=== PATIENT | male | born 1995 | race Caucasian/White ===

== ENCOUNTER → 2023-04-14 | Outpatient (CLI) | payer BC ==
--- NOTE | 2023-04-14 17:02 | XR ---
EXAMINATION TYPE: XR KUB DATE OF EXAM: 04/14/2023 COMPARISON: None at this location INDICATION: Left renal stone TECHNIQUE: Single view abdomen supine view FINDINGS: There is a normal bowel gas pattern. Psoas margins are normal. No organomegaly is present. There is a 0.6 cm calcification overlying the inferior pole left kidney. No additional renal stones i dentified. Phleboliths within the pelvis. IMPRESSION: 1. 0.6 cm inferior pole left renal stone
== END | disposition home or self-care (01) ==
LOC: RADXRMAIN 15:13
PROVIDERS: ATTEND Urology
DX: N20.0 Calculus of kidney (principal)
CPT/HCPCS: 74018

== ENCOUNTER → 2023-04-26 | Outpatient (CLI) | payer BC ==
[2023-04-27 02:17] LABS: Appearance,Urine Clear (Clear); Bilirubin,Urine Negative (Negative); Blood,Urine Negative (Negative); Color,Urine Yellow (Yellow); Ketones,Urine Negative (Negative); Nitrite,Urine Negative (Negative); PH, Urine 7.5; Specific Gravity,Urine 1.007 (1.001-1.030); Urobilinogen,Urine 0.2 E.U./DL
[2023-04-27 02:31] LABS: Basophils # (A) 0.04 X 10*3/uL (0.00-0.10); Basophils % (A) 0.4 %; Eosinophils # (A) 0.15 X 10*3/uL (0.04-0.35); Eosinophils % (A) 1.6 %; HCT 47.2 % (39.6-50.0); HGB 15.1 g/dL (13.0-17.0); Lymphocytes # (A) 2.93 X 10*3/uL (0.90-5.00); Lymphocytes % (A) 31.8 %; MCV 84.3 FL (80.0-97.0); Mean Platelet Volume 10.4 FL (9.5-12.2); Monocytes # (A) 0.49 X 10*3/uL (0.20-1.00); Monocytes % (A) 5.3 %; NRBC Per 100 WBC 0 X 10*3/uL (0.00-0.01); Neutrophils # (A) 5.58 X 10*3/uL (1.80-7.70); Neutrophils % (A) 60.7 %; Platelet Count 264 X 10*3/uL (140-440); RDW 12.4 % (11.5-14.5); WBC 9.21 X 10*3/uL (4.50-10.00)
[2023-04-27 03:28] LABS: Blood Urea Nitrogen 14.8 mg/dL (9.0-27.0); Carbon Dioxide 26.3 mmol/L (21.6-31.8); Chloride 102 mmol/L (96-109); Potassium 4.1 mmol/L (3.5-5.5); Sodium 139 mmol/L (135-145)
== END | disposition home or self-care (01) ==
LOC: LABPAT 16:30
PROVIDERS: ATTEND Urology
DX: Z01.812 Encounter for preprocedural laboratory examination (principal); N20.0 Calculus of kidney
CPT/HCPCS: 80051; 81003; 82565; 84520; 85025; 87086

== ENCOUNTER → 2023-05-03 | Day surgery (SDC) | payer BC ==
--- NOTE | 2023-05-02 15:05 | P.GSHP ---
History of Present Illness H&P Date: 05/02/23 28 yo male seen in the office / after being seen in the er with a 6 mm proximal ureteral stone on the left. a kub that day showed the stone had dropped back to the left lower pole. I discussed treatment options and he comes for eswl left. - Constitutional Constitutional: Denies chills, Denies fever - EENT Eyes: denies blurred vision, denies pain Ears, nose, mouth and throat: Denies headache, Denies sore throat - Cardiovascular Cardiovascular: Denies chest pain, Denies shortness of breath - Respiratory Respiratory: Denies cough, Denies 7 - Gastrointestinal Gastrointestinal: Denies abdominal pain, Denies diarrhea, Denies nausea, Denies vomiting - Genitourinary (Female) Genitourinary: Denies dysuria, Denies hematuria - Genitourinary (Male) Genitourinary: Denies dysuria, Denies hematuria - Musculoskeletal Musculoskeletal: Denies myalgias - Integumentary Integumentary: Denies pruritus, Denies rash - Neurological Neurological: Denies numbness, Denies weakness - Psychiatric Psychiatric: Denies anxiety, Denies depression - Endocrine Endocrine: Denies fatigue, Denies weight change Surgical - Exam - General well developed, well nourished, no distress - Eyes normal ocular movement, no icteric - ENT no hearing loss, no congestion - Neck no masses, trachea midline - Respiratory normal respiratory effort, clear to auscultation - Abdomen Abdomen: soft, non tender, no guarding, no rigid, no rebound - Integumentary no rash, no abnormal pigmentation - Neurologic no disoriented, no combative - Psychiatric oriented to time, oriented to person, oriented to place, speech is normal, memory intact Results - Imaging Abdominal x-ray: report reviewed, image reviewed CT scan - abdomen: report reviewed CT scan - pelvis: report reviewed Assessment and Plan Assessment: impression: Left renal stone Plan: ESWL left
[~2023-05-03] MED LIST: FUROSEMIDE 10 MG/ML 2 ML VIAL ONE; GLYCOPYRROLATE 0.2 MG/ML 2 ML VIAL ONE; LIDOCAINE 1% (10MG/ML) FOR IV START INTRADERMA PRN; MIDAZOLAM 2 MG/2 ML VIAL ONE; ONDANSETRON 4 MG/2 ML VIAL IVP PRN; ONDANSETRON 4 MG/2 ML VIAL ONE; PROPOFOL 10 MG/ML 20 ML VIAL IV ONE; fentaNYL (PF) 50 MCG/ML 2 ML AMP ONE
[2023-05-03] MEDS: IV FLUID CONTINUATION 1,000 ML IV ONE ×2 (09:43→09:45)
[2023-05-03 10:00] VITALS: TEMP 97.5
--- NOTE | 2023-05-03 10:13 | XR ---
EXAMINATION TYPE: XR KUB DATE OF EXAM: 05/03/2023 9:06 AM CLINICAL INDICATION:Male, 28 years old with history of N20.0 left renal calculi; [facility] COMPARISON: None. TECHNIQUE: One radiographic view of the abdomen was obtained. FINDINGS: The bowel gas pattern is nonspecific without dilated loops of small or large bowel. There i s no evidence for organomegaly or pneumoperitoneum. The osseous structures are intact. 6 mm calculu s projects over the left kidney. Fecal material and gas are demonstrated throughout the colon and rec angelica. IMPRESSION: Nonspecific bowel gas pattern without radiographic evidence for acute process. Left Nephrolithiasis
--- NOTE | 2023-05-03 10:21 | P.OP ---
Date of Procedure: 05/03/23 Preoperative Diagnosis: Left ureteral calculus Postoperative Diagnosis: Same Procedure(s) Performed: Extracorporeal shockwave lithotripsy, 2500 shocks at energy level IV Anesthesia: MAC Surgeon: Josue Phoenix Pathology: none sent Condition: stable Disposition: PACU Indications for Procedure: The patient is 28. He has a 5 mm proximal left ureteral stone causing colic. He comes for left shockwave lithotripsy Description of Procedure: Patient is brought to the operating suite. On the lithotripsy table is given IV sedation. The stone was seen in the proximal left ureter with 2 views with fluoroscopy. 2500 shocks at energy level IV administered with the Dornier compact delta 2 lithotripter. Stone appears to fracture. At the end of the procedure the patient was awakened and returned recovery room in good condition. Be discharged home upon recovery and follow in the office in 1 week.
[2023-05-03] MEDS: HYDROmorphone 0.5 MG/0.5 ML SYRINGE IVP ONE (11:02)
[2023-05-03] MEDS: LACTATED RINGERS 1,000 ML IV SCH (11:04)
[2023-05-03 11:09] VITALS: RESP 14
[2023-05-03 11:44] VITALS: BP 132/89; PULSE 66
== END | disposition home or self-care (01) ==
LOC: ORWHC2ENDO 08:52
PROVIDERS: ATTEND Urology
DX: N20.2 Calculus of kidney with calculus of ureter (principal); I48.91 Unspecified atrial fibrillation; J45.909 Unspecified asthma, uncomplicated
CPT/HCPCS: 74018; 50590; J2250; J1940; J2405; J3010; J2704; J1170

== ENCOUNTER → 2023-05-11 | Outpatient (CLI) | payer BC ==
--- NOTE | 2023-05-11 11:24 | XR ---
EXAMINATION TYPE: XR KUB DATE OF EXAM: 05/11/2023 COMPARISON: 05/03/2023 INDICATION: Renal calculus left TECHNIQUE: Single view abdomen supine view FINDINGS: There is a normal bowel gas pattern. Moderate fecal residual:. Psoas margins are normal. No organomegaly is present. Previously suspected left ureteral calcifications are not identified on the current examination. Ther e is a small calcification upper left hemipelvis measuring 0.4 cm overlying the right sacrum. The dis muriel left ureteral stone fragment could be considered. Within the pelvis appears stable and may be rel ated to phleboliths. IMPRESSION: 1. Previous calcification in the expected left ureteral region not identified on the current exam. 2. Smaller calcification may overlie the sacrum could be a small fragment of distal ureteral stone.
== END | disposition home or self-care (01) ==
LOC: RADXRMAIN 11:01
PROVIDERS: ATTEND Urology
DX: N20.0 Calculus of kidney (principal); N28.89 Other specified disorders of kidney and ureter
CPT/HCPCS: 74018